=== PATIENT | male | born 1955 | race Caucasian/White ===

== ENCOUNTER 2017-08-17 19:39 | Inpatient (IN) | payer BC ==
[2017-08-17] MEDS ORDERED: ONDANSETRON 4 MG INJ IV (20:30)
[2017-08-17] MEDS: morphine 2 MG INJ IV (21:00)
[2017-08-17] MEDS: AMLODIPINE 5 MG TAB PO (21:00)
[2017-08-17] MEDS: ATORVASTATIN 10 MG TAB PO (21:00)
[2017-08-17] MEDS: TIOTROPIUM 18 MCG CAPSULE INHA DEV INH (22:07)
[2017-08-17] MEDS: ALPRAZOLAM 0.25 MG TAB PO (22:11)
[2017-08-18] MEDS: DOCUSATE SODIUM 100 MG CAP PO ×3 (00:56→20:46)
[2017-08-18] MEDS: morphine 2 MG INJ IV ×5 (00:57→20:47)
[2017-08-18 01:30] LABS: ADD MAN DIFF? NO
[2017-08-18 01:32] LABS: ABNORMAL IP MESSAGE 1; BASOPHIL # 0.1 10^3/ul (0.0-0.1); BASOPHILS % 0.3 % (0.0-2.0); EOSINOPHILS % 0.1 % (0.0-7.0); HEMOGLOBIN 13.6 g/dl (14.0-18.0); LYMPHOCYTES # 2.6 10^3/ul (0.8-2.9); LYMPHOCYTES % 11.6 % (15.0-51.0); MEAN CORPUSCULAR HEMOGLOBIN 30.7 pg (29.0-33.0); MEAN CORPUSCULAR HGB CONC 34.9 g/dl (32.0-37.0); MEAN PLATELET VOLUME 10.2 fl (7.4-10.4); MONOCYTE # 1.7 10^3/ul (0.3-0.9); MONOCYTES % 7.9 % (0.0-11.0); NEUTROPHIL # 17.5 10^3/ul (1.6-7.5); NEUTROPHILS % 79.4 % (39.0-77.0); PLATELET COUNT 212 10^3/UL (140-415); POSITIVE DIFF @See below; RED BLOOD COUNT 4.43 10^6/ul (4.70-6.10); RED CELL DISTRIBUTION WIDTH 15.5 % (11.5-14.5)
[2017-08-18 01:52] LABS: ALANINE AMINOTRANSFERASE 347 IU/L (13-69); ALBUMIN 2.7 g/dl (3.3-4.9); ALBUMIN/GLOBULIN RATIO 0.93; ALKALINE PHOSPHATASE 116 IU/L (42-121); ANION GAP 12 (8-16); ASPARTATE AMINO TRANSFERASE 135 IU/L (15-46); BILIRUBIN,INDIRECT 1.4 mg/dl (0-1.1); BILIRUBIN,TOTAL 1.5 mg/dl (0.2-1.3); BLOOD UREA NITROGEN 12 mg/dl (7-20); CALCIUM 7.3 mg/dl (8.4-10.2); CARBON DIOXIDE 27 mmol/L (21-31); CHLORIDE 98 mmol/L (97-110); CREATININE 0.89 mg/dl (0.61-1.24); GLUCOSE 184 mg/dl (70-220); MAGNESIUM 2.1 mg/dl (1.7-2.5); PHOSPHORUS 1.6 mg/dl (2.5-4.9); POTASSIUM 3.7 mmol/L (3.5-5.1); SODIUM 133 mmol/L (135-144); TOTAL PROTEIN 5.6 g/dl (6.1-8.1)
[2017-08-18 02:05] LABS: LACTIC ACID 2.8 mmol/L (0.5-2.0)
[2017-08-18] MEDS: ALBUTEROL HFA 8 GM INHALER INH ×2 (02:28→22:23)
[2017-08-18] MEDS: SOD CHLORIDE 0.9% 1,000 ML IV (02:28)
[2017-08-18] MEDS ORDERED: VANCOMYCIN IV PER PHARMACY XX (02:30)
[2017-08-18] MEDS: VANCOMYCIN 1.75 GM in SOD CHLORIDE 0.9% 500 ML IVPB (04:35)
[2017-08-18] MEDS ORDERED: INFLUENZA VIRUS VACCINE 0.5 ML SYG IM* (09:00)
[2017-08-18] MEDS ORDERED: AMLODIPINE 5 MG TAB PO (09:00)
[2017-08-18] MEDS: AMLODIPINE 5 MG TAB PO (09:00)
[2017-08-18] MEDS: PIPER-TAZO 3.375 GM IV (PMX) 100 ML IVPB ×4 (09:36→23:57)
[2017-08-18] MEDS: ALBUTEROL/IPRATROPIUM (NEB) 3 ML AMP HHN ×2 (10:28→16:28)
[2017-08-18] MEDS: ALPRAZOLAM 0.25 MG TAB PO (15:13)
[2017-08-18] MEDS: VANCOMYCIN 1.25 GM in SOD CHLORIDE 0.9% 250 ML IVPB (15:23)
[2017-08-18] MEDS: LACTATED RINGER'S 1,000 ML IV (15:23)
[2017-08-18 18:05] LABS: HEMATOCRIT 35.7 % (42.0-52.0); HEMOGLOBIN 12.2 g/dl (14.0-18.0)
[2017-08-18] MEDS: ATORVASTATIN 10 MG TAB PO (20:45)
[2017-08-18] MEDS: ACETAMINOPHEN 325 MG TAB PO (22:23)
[2017-08-18] MEDS: METOPROLOL 25 MG TAB PO (22:27)
[2017-08-18] MEDS: LEVALBUTEROL (NEB) 0.63 MG/3 ML AMP HHN (22:46)
[2017-08-18 22:56] LABS: ADD UMIC YES; UR ASCORBIC ACID NEGATIVE (NEGATIVE); UR BILIRUBIN (Dip) NEGATIVE (NEGATIVE); UR BLOOD (Dip) 2+ mg/dL (NEGATIVE); UR CLARITY CLEAR (CLEAR); UR COLOR AMBER (YELLOW); UR GLUCOSE (Dip) NEGATIVE (NEGATIVE); UR KETONES (Dip) NEGATIVE (NEGATIVE); UR LEUKOCYTE ESTERASE (Dip) NEGATIVE Leu/ul (NEGATIVE); UR NITRITE (Dip) NEGATIVE (NEGATIVE); UR RBC 1 /HPF (0-5); UR SPECIFIC GRAVITY (Dip) 1.028 (1.003-1.030); UR TOTAL PROTEIN (Dip) 2+ mg/dl (NEGATIVE); UR UROBILINOGEN (Dip) NEGATIVE (NEGATIVE); UR WBC 2 /HPF (0-5)
[2017-08-19 00:53] LABS: HEMATOCRIT 35.7 % (42.0-52.0); HEMOGLOBIN 12.3 g/dl (14.0-18.0)
[2017-08-19] MEDS: ALPRAZOLAM 0.25 MG TAB PO ×3 (01:01→20:22)
[2017-08-19] MEDS: morphine 2 MG INJ IV ×4 (01:02→17:19)
[2017-08-19] MEDS: VANCOMYCIN 1.25 GM in SOD CHLORIDE 0.9% 250 ML IVPB ×2 (03:24→15:31)
[2017-08-19] MEDS: LACTATED RINGER'S 1,000 ML IV ×3 (03:50→17:10)
[2017-08-19 05:37] LABS: ADD MAN DIFF? NO
[2017-08-19 05:47] LABS: ABNORMAL IP MESSAGE 1; BASOPHIL # 0.1 10^3/ul (0.0-0.1); BASOPHILS % 0.4 % (0.0-2.0); EOSINOPHILS # 0.3 10^3/ul (0.0-0.5); EOSINOPHILS % 1.7 % (0.0-7.0); HEMOGLOBIN 11.9 g/dl (14.0-18.0); LYMPHOCYTES % 13.5 % (15.0-51.0); MEAN CORPUSCULAR HEMOGLOBIN 30.7 pg (29.0-33.0); MEAN CORPUSCULAR VOLUME 90.2 fl (82.0-101.0); MEAN PLATELET VOLUME 10.6 fl (7.4-10.4); MONOCYTE # 1.5 10^3/ul (0.3-0.9); MONOCYTES % 10.6 % (0.0-11.0); NEUTROPHIL # 10.6 10^3/ul (1.6-7.5); NEUTROPHILS % 72.8 % (39.0-77.0); PLATELET COUNT 163 10^3/UL (140-415); POSITIVE DIFF @See below; RED BLOOD COUNT 3.88 10^6/ul (4.70-6.10); RED CELL DISTRIBUTION WIDTH 15.7 % (11.5-14.5)
[2017-08-19 05:47] LABS: WHITE BLOOD COUNT 14.6 10^3/ul (4.8-10.8)
[2017-08-19 06:34] LABS: ANION GAP 8 (8-16); BLOOD UREA NITROGEN 6 mg/dl (7-20); CALCIUM 7.5 mg/dl (8.4-10.2); CARBON DIOXIDE 31 mmol/L (21-31); CHLORIDE 104 mmol/L (97-110); CREATININE 0.78 mg/dl (0.61-1.24); GLUCOSE 134 mg/dl (70-220); POTASSIUM 3.3 mmol/L (3.5-5.1); SODIUM 140 mmol/L (135-144)
[2017-08-19] MEDS: PIPER-TAZO 3.375 GM IV (PMX) 100 ML IVPB ×3 (06:38→20:19)
[2017-08-19] MEDS: AMLODIPINE 5 MG TAB PO (09:15)
[2017-08-19] MEDS: METOPROLOL 25 MG TAB PO ×2 (09:15→20:20)
[2017-08-19] MEDS: DOCUSATE SODIUM 100 MG CAP PO ×2 (09:15→20:19)
[2017-08-19 12:41] LABS: HEMATOCRIT 36.1 % (42.0-52.0)
[2017-08-19 14:30] LABS: IRON 27 ug/dl (35-150)
[2017-08-19 14:38] LABS: VANCOMYCIN,TROUGH 6.6 ug/ml (10.0-20.0)
[2017-08-19 14:40] LABS: % IRON SATURATION 13 % SAT (22-52); TOTAL IRON BINDING CAPACITY 216 ug/dl (241-421)
[2017-08-19] MEDS: HYDROCODONE/APAP (5/325) TAB PO (15:06)
[2017-08-19 15:25] LABS: LIPASE 336 U/L (23-300)
[2017-08-19 15:28] LABS: HEPATITIS B SURFACE ANTIGEN NEGATIVE (NEGATIVE)
[2017-08-19 15:46] LABS: HEPATITIS B CORE ANTIBODY NEGATIVE (NEGATIVE); HEPATITIS C VIRAL ANTIBODY NEGATIVE (NEGATIVE)
[2017-08-19 15:47] LABS: HEPATITIS B SURFACE ANTIBODY NEGATIVE (NEGATIVE)
[2017-08-19 15:55] LABS: INR 1.04; PROTIME 13.7 Sec (11.9-14.9); PT RATIO 1.1
[2017-08-19 16:39] LABS: ALPHA FETOPROTEIN 1.57 IU/L (0.00-7.21)
[2017-08-19] MEDS: TIOTROPIUM 18 MCG CAPSULE INHA DEV INH (17:19)
[2017-08-19 18:38] LABS: HEMATOCRIT 34.1 % (42.0-52.0); HEMOGLOBIN 11.5 g/dl (14.0-18.0)
[2017-08-19] MEDS: ATORVASTATIN 10 MG TAB PO (20:19)
[2017-08-19] MEDS: ALBUTEROL 0.083% (NEB) 2.5 MG/3 ML AMP HHN (22:16)
[2017-08-19] MEDS: VANCOMYCIN 1 GM 250 ML IVPB (23:25)
[2017-08-20] MEDS: PIPER-TAZO 3.375 GM IV (PMX) 100 ML IVPB ×4 (01:35→18:48)
[2017-08-20] MEDS: ALBUTEROL 0.083% (NEB) 2.5 MG/3 ML AMP HHN ×3 (05:55→13:46)
[2017-08-20 06:01] LABS: ADD MAN DIFF? NO
[2017-08-20 06:10] LABS: ABNORMAL IP MESSAGE 1; BASOPHIL # 0.1 10^3/ul (0.0-0.1); BASOPHILS % 0.3 % (0.0-2.0); EOSINOPHILS # 0.4 10^3/ul (0.0-0.5); EOSINOPHILS % 2.2 % (0.0-7.0); HEMATOCRIT 37.5 % (42.0-52.0); HEMOGLOBIN 12.7 g/dl (14.0-18.0); LYMPHOCYTES # 2.5 10^3/ul (0.8-2.9); LYMPHOCYTES % 15.6 % (15.0-51.0); MEAN CORPUSCULAR HEMOGLOBIN 30.2 pg (29.0-33.0); MEAN CORPUSCULAR HGB CONC 33.9 g/dl (32.0-37.0); MEAN CORPUSCULAR VOLUME 89.3 fl (82.0-101.0); MEAN PLATELET VOLUME 10.4 fl (7.4-10.4); MONOCYTE # 1.6 10^3/ul (0.3-0.9); NEUTROPHIL # 11.4 10^3/ul (1.6-7.5); NEUTROPHILS % 70.5 % (39.0-77.0); PLATELET COUNT 223 10^3/UL (140-415); POSITIVE DIFF @See below; RED CELL DISTRIBUTION WIDTH 15.2 % (11.5-14.5)
[2017-08-20 06:10] LABS: WHITE BLOOD COUNT 16.1 10^3/ul (4.8-10.8)
[2017-08-20] MEDS: LACTATED RINGER'S 1,000 ML IV ×2 (06:30→09:36)
[2017-08-20] MEDS: morphine 2 MG INJ IV ×3 (06:35→22:03)
[2017-08-20] MEDS: PANTOPRAZOLE 40 MG INJ IV (06:35)
[2017-08-20 06:42] LABS: ANION GAP 13 (8-16); BLOOD UREA NITROGEN 6 mg/dl (7-20); CALCIUM 8.3 mg/dl (8.4-10.2); CARBON DIOXIDE 27 mmol/L (21-31); CHLORIDE 102 mmol/L (97-110); CREATININE 0.81 mg/dl (0.61-1.24); GLUCOSE 137 mg/dl (70-220); POTASSIUM 3.3 mmol/L (3.5-5.1); SODIUM 139 mmol/L (135-144)
[2017-08-20] MEDS: VANCOMYCIN 1 GM 250 ML IVPB (08:49)
[2017-08-20] MEDS: DOCUSATE SODIUM 100 MG CAP PO ×2 (08:49→20:28)
[2017-08-20] MEDS: AMLODIPINE 5 MG TAB PO (08:50)
[2017-08-20] MEDS: METOPROLOL 25 MG TAB PO ×2 (08:51→20:28)
[2017-08-20] MEDS: ALPRAZOLAM 0.25 MG TAB PO ×2 (08:57→22:02)
[2017-08-20 13:24] LABS: OCCULT BLOOD STOOL NEGATIVE (NEGATIVE)
[2017-08-20 13:31] LABS: ALANINE AMINOTRANSFERASE 176 IU/L (13-69); ALBUMIN 3.2 g/dl (3.3-4.9); ALKALINE PHOSPHATASE 140 IU/L (42-121); ASPARTATE AMINO TRANSFERASE 67 IU/L (15-46); BILIRUBIN,INDIRECT 0.7 mg/dl (0-1.1); BILIRUBIN,TOTAL 0.7 mg/dl (0.2-1.3); TOTAL PROTEIN 6.6 g/dl (6.1-8.1)
[2017-08-20] MEDS ORDERED: PROPOFOL 40 ML (17:35)
[2017-08-20] MEDS ORDERED: LIDOCAINE 2% (SDV) 5 ML INJ (17:35)
[2017-08-20] MEDS: FERROUS GLUCONATE (EC) 325 MG TAB PO (20:28)
[2017-08-20] MEDS: ATORVASTATIN 10 MG TAB PO (20:28)
[2017-08-20] MEDS: LEVALBUTEROL (NEB) 0.63 MG/3 ML AMP HHN (20:32)
[2017-08-21] MEDS: PIPER-TAZO 3.375 GM IV (PMX) 100 ML IVPB ×5 (00:06→23:54)
[2017-08-21] MEDS: ALBUTEROL HFA 8 GM INHALER INH (00:07)
[2017-08-21] MEDS: LEVALBUTEROL (NEB) 0.63 MG/3 ML AMP HHN ×5 (00:50→21:02)
[2017-08-21] MEDS: PANTOPRAZOLE 40 MG INJ IV (06:17)
[2017-08-21] MEDS: LACTATED RINGER'S 1,000 ML IV ×3 (06:22→22:30)
[2017-08-21 07:05] LABS: ADD MAN DIFF? NO
[2017-08-21 07:10] LABS: WHITE BLOOD COUNT 11.4 10^3/ul (4.8-10.8)
[2017-08-21 07:10] LABS: BASOPHIL # 0.1 10^3/ul (0.0-0.1); BASOPHILS % 0.4 % (0.0-2.0); EOSINOPHILS # 0.2 10^3/ul (0.0-0.5); HEMATOCRIT 35.2 % (42.0-52.0); HEMOGLOBIN 11.9 g/dl (14.0-18.0); LYMPHOCYTES # 1.8 10^3/ul (0.8-2.9); LYMPHOCYTES % 15.5 % (15.0-51.0); MEAN CORPUSCULAR HEMOGLOBIN 30.4 pg (29.0-33.0); MEAN CORPUSCULAR HGB CONC 33.8 g/dl (32.0-37.0); MEAN PLATELET VOLUME 10.3 fl (7.4-10.4); MONOCYTE # 1.4 10^3/ul (0.3-0.9); MONOCYTES % 12.5 % (0.0-11.0); NEUTROPHIL # 7.8 10^3/ul (1.6-7.5); NEUTROPHILS % 68.4 % (39.0-77.0); PLATELET COUNT 201 10^3/UL (140-415); RED BLOOD COUNT 3.91 10^6/ul (4.70-6.10); RED CELL DISTRIBUTION WIDTH 15.2 % (11.5-14.5)
[2017-08-21 07:29] LABS: ALANINE AMINOTRANSFERASE 130 IU/L (13-69); ALBUMIN 2.7 g/dl (3.3-4.9); ALKALINE PHOSPHATASE 102 IU/L (42-121); ASPARTATE AMINO TRANSFERASE 46 IU/L (15-46); BILIRUBIN,INDIRECT 0.2 mg/dl (0-1.1); BILIRUBIN,TOTAL 0.2 mg/dl (0.2-1.3); TOTAL PROTEIN 5.3 g/dl (6.1-8.1)
[2017-08-21 07:35] LABS: ANION GAP 14 (8-16); BLOOD UREA NITROGEN 8 mg/dl (7-20); CALCIUM 8.3 mg/dl (8.4-10.2); CARBON DIOXIDE 31 mmol/L (21-31); CHLORIDE 101 mmol/L (97-110); CREATININE 0.87 mg/dl (0.61-1.24); GLUCOSE 138 mg/dl (70-220); SODIUM 143 mmol/L (135-144)
[2017-08-21 07:38] LABS: POTASSIUM 2.7 mmol/L (3.5-5.1)
[2017-08-21] MEDS: METOPROLOL 25 MG TAB PO ×2 (07:53→20:58)
[2017-08-21] MEDS: AMLODIPINE 5 MG TAB PO (07:53)
[2017-08-21 09:03] LABS: ADD MAN DIFF? NO
[2017-08-21 09:06] LABS: WHITE BLOOD COUNT 12.3 10^3/ul (4.8-10.8)
[2017-08-21 09:06] LABS: ABNORMAL IP MESSAGE 1; BASOPHILS % 0.3 % (0.0-2.0); EOSINOPHILS # 0.2 10^3/ul (0.0-0.5); EOSINOPHILS % 1.9 % (0.0-7.0); HEMATOCRIT 34.4 % (42.0-52.0); HEMOGLOBIN 11.5 g/dl (14.0-18.0); LYMPHOCYTES % 16.5 % (15.0-51.0); MEAN CORPUSCULAR HEMOGLOBIN 30.3 pg (29.0-33.0); MEAN CORPUSCULAR HGB CONC 33.4 g/dl (32.0-37.0); MEAN CORPUSCULAR VOLUME 90.5 fl (82.0-101.0); MEAN PLATELET VOLUME 10.4 fl (7.4-10.4); MONOCYTE # 1.6 10^3/ul (0.3-0.9); MONOCYTES % 12.8 % (0.0-11.0); NEUTROPHIL # 8.3 10^3/ul (1.6-7.5); NEUTROPHILS % 67.4 % (39.0-77.0); PLATELET COUNT 194 10^3/UL (140-415); POSITIVE DIFF @See below; RED CELL DISTRIBUTION WIDTH 15.3 % (11.5-14.5)
[2017-08-21] MEDS: DOCUSATE SODIUM 100 MG CAP PO ×2 (09:18→20:57)
[2017-08-21] MEDS: FERROUS GLUCONATE (EC) 325 MG TAB PO ×2 (09:18→20:57)
[2017-08-21 09:19] LABS: ALANINE AMINOTRANSFERASE 131 IU/L (13-69); ALBUMIN 3.1 g/dl (3.3-4.9); ALBUMIN/GLOBULIN RATIO 1.03; ALKALINE PHOSPHATASE 116 IU/L (42-121); AMYLASE 107 U/L (11-123); ANION GAP 13 (8-16); ASPARTATE AMINO TRANSFERASE 46 IU/L (15-46); BILIRUBIN,INDIRECT 0.3 mg/dl (0-1.1); BILIRUBIN,TOTAL 0.3 mg/dl (0.2-1.3); BLOOD UREA NITROGEN 8 mg/dl (7-20); CALCIUM 8.1 mg/dl (8.4-10.2); CARBON DIOXIDE 30 mmol/L (21-31); CHLORIDE 101 mmol/L (97-110); CREATININE 0.88 mg/dl (0.61-1.24); GLUCOSE 150 mg/dl (70-220); LIPASE 794 U/L (23-300); SODIUM 141 mmol/L (135-144); TOTAL PROTEIN 6.1 g/dl (6.1-8.1)
[2017-08-21] MEDS: morphine 2 MG INJ IV (09:19)
[2017-08-21 09:22] LABS: POTASSIUM 2.9 mmol/L (3.5-5.1)
[2017-08-21 09:26] LABS: INR 0.95; PROTIME 12.8 Sec (11.9-14.9)
[2017-08-21 09:44] LABS: MAGNESIUM 2.1 mg/dl (1.7-2.5)
[2017-08-21 09:44] LABS: PHOSPHORUS 3.6 mg/dl (2.5-4.9)
[2017-08-21] MEDS ORDERED: INFLUENZA VIRUS VACCINE 0.5 ML SYG IM* (10:00)
[2017-08-21] MEDS: POTASSIUM CHLORIDE 100 ML IVPB ×4 (10:32→19:31)
[2017-08-21 11:37] LABS: MITOCHONDRIAL TB NEGATIVE (NEGATIVE); SMOOTH MUSCLE AB SCREEN NEGATIVE (NEGATIVE)
[2017-08-21 14:36] LABS: ANA SCREEN NEGATIVE (NEGATIVE)
[2017-08-21] MEDS: ALPRAZOLAM 0.25 MG TAB PO ×2 (15:32→23:54)
[2017-08-21 15:55] LABS: POTASSIUM 3.3 mmol/L (3.5-5.1)
[2017-08-21] MEDS: ATORVASTATIN 10 MG TAB PO (20:57)
[2017-08-21 23:17] LABS: POTASSIUM 3.6 mmol/L (3.5-5.1)
[2017-08-21] MEDS: POTASSIUM CHLORIDE (SR) 20 MEQ TAB PO (23:54)
[2017-08-22] MEDS: HYDROCODONE/APAP (5/325) TAB PO ×2 (01:43→14:15)
[2017-08-22] MEDS: PANTOPRAZOLE 40 MG INJ IV (05:15)
[2017-08-22] MEDS: PIPER-TAZO 3.375 GM IV (PMX) 100 ML IVPB (05:15)
[2017-08-22] MEDS: LACTATED RINGER'S 1,000 ML IV (05:15)
[2017-08-22] MEDS: LEVALBUTEROL (NEB) 0.63 MG/3 ML AMP HHN (05:38)
[2017-08-22 05:57] LABS: ADD MAN DIFF? NO
[2017-08-22 06:05] LABS: ABNORMAL IP MESSAGE 1; BASOPHIL # 0.1 10^3/ul (0.0-0.1); BASOPHILS % 0.5 % (0.0-2.0); EOSINOPHILS # 0.3 10^3/ul (0.0-0.5); EOSINOPHILS % 2.5 % (0.0-7.0); HEMATOCRIT 33.8 % (42.0-52.0); HEMOGLOBIN 11.4 g/dl (14.0-18.0); LYMPHOCYTES # 1.9 10^3/ul (0.8-2.9); LYMPHOCYTES % 16.9 % (15.0-51.0); MEAN CORPUSCULAR HEMOGLOBIN 30.6 pg (29.0-33.0); MEAN CORPUSCULAR HGB CONC 33.7 g/dl (32.0-37.0); MEAN CORPUSCULAR VOLUME 90.9 fl (82.0-101.0); MEAN PLATELET VOLUME 9.9 fl (7.4-10.4); MONOCYTE # 1.5 10^3/ul (0.3-0.9); MONOCYTES % 13.5 % (0.0-11.0); NEUTROPHIL # 7.3 10^3/ul (1.6-7.5); NEUTROPHILS % 64.8 % (39.0-77.0); PLATELET COUNT 217 10^3/UL (140-415); POSITIVE DIFF @See below; RED BLOOD COUNT 3.72 10^6/ul (4.70-6.10); RED CELL DISTRIBUTION WIDTH 15.2 % (11.5-14.5)
[2017-08-22 06:05] LABS: WHITE BLOOD COUNT 11.3 10^3/ul (4.8-10.8)
[2017-08-22 06:07] LABS: INR 0.97
[2017-08-22 06:08] LABS: PARTIAL THROMBOPLASTIN TIME 31.2 Sec (25.0-35.0)
[2017-08-22 06:31] LABS: ALANINE AMINOTRANSFERASE 104 IU/L (13-69); ALBUMIN 3.1 g/dl (3.3-4.9); ALBUMIN/GLOBULIN RATIO 0.96; ALKALINE PHOSPHATASE 100 IU/L (42-121); AMYLASE 119 U/L (11-123); ANION GAP 13 (8-16); ASPARTATE AMINO TRANSFERASE 40 IU/L (15-46); BILIRUBIN,INDIRECT 0.1 mg/dl (0-1.1); BILIRUBIN,TOTAL 0.1 mg/dl (0.2-1.3); BLOOD UREA NITROGEN 9 mg/dl (7-20); CALCIUM 8.3 mg/dl (8.4-10.2); CARBON DIOXIDE 29 mmol/L (21-31); CHLORIDE 105 mmol/L (97-110); GLUCOSE 173 mg/dl (70-220); LIPASE 1411 U/L (23-300); PHOSPHORUS 3.4 mg/dl (2.5-4.9); POTASSIUM 3.5 mmol/L (3.5-5.1); SODIUM 143 mmol/L (135-144); TOTAL PROTEIN 6.3 g/dl (6.1-8.1)
[2017-08-22] MEDS: DOCUSATE SODIUM 100 MG CAP PO ×2 (09:23→20:22)
[2017-08-22] MEDS: FERROUS GLUCONATE (EC) 325 MG TAB PO ×2 (09:23→20:22)
[2017-08-22] MEDS: METOPROLOL 25 MG TAB PO ×2 (09:23→20:22)
[2017-08-22] MEDS: AMLODIPINE 5 MG TAB PO (09:24)
[2017-08-22] MEDS: LEVOFLOXACIN 500MG/D5W (PMX) 100 ML IVPB (09:39)
[2017-08-22] MEDS: ALPRAZOLAM 0.25 MG TAB PO ×2 (12:33→21:40)
[2017-08-22] MEDS: ATORVASTATIN 10 MG TAB PO (20:23)
[2017-08-22] MEDS: ALBUTEROL 0.083% (NEB) 2.5 MG/3 ML AMP HHN (21:21)
[2017-08-23] MEDS: PANTOPRAZOLE 40 MG INJ IV (05:49)
[2017-08-23 06:50] LABS: ADD MAN DIFF? NO
[2017-08-23 06:55] LABS: WHITE BLOOD COUNT 12.7 10^3/ul (4.8-10.8)
[2017-08-23 06:55] LABS: ABNORMAL IP MESSAGE 1; BASOPHIL # 0.1 10^3/ul (0.0-0.1); BASOPHILS % 0.6 % (0.0-2.0); EOSINOPHILS # 0.3 10^3/ul (0.0-0.5); EOSINOPHILS % 2.5 % (0.0-7.0); HEMATOCRIT 33.8 % (42.0-52.0); HEMOGLOBIN 11.4 g/dl (14.0-18.0); LYMPHOCYTES # 2.3 10^3/ul (0.8-2.9); LYMPHOCYTES % 17.8 % (15.0-51.0); MEAN CORPUSCULAR HEMOGLOBIN 30.3 pg (29.0-33.0); MEAN CORPUSCULAR HGB CONC 33.7 g/dl (32.0-37.0); MEAN CORPUSCULAR VOLUME 89.9 fl (82.0-101.0); MONOCYTE # 1.5 10^3/ul (0.3-0.9); NEUTROPHIL # 8.3 10^3/ul (1.6-7.5); NEUTROPHILS % 64.9 % (39.0-77.0); PLATELET COUNT 277 10^3/UL (140-415); POSITIVE DIFF @See below; RED BLOOD COUNT 3.76 10^6/ul (4.70-6.10)
[2017-08-23 07:14] LABS: ANION GAP 12 (8-16); BLOOD UREA NITROGEN 11 mg/dl (7-20); CALCIUM 8.5 mg/dl (8.4-10.2); CARBON DIOXIDE 29 mmol/L (21-31); CHLORIDE 104 mmol/L (97-110); CREATININE 0.79 mg/dl (0.61-1.24); GLUCOSE 131 mg/dl (70-220); POTASSIUM 3.6 mmol/L (3.5-5.1); SODIUM 141 mmol/L (135-144)
[2017-08-23] MEDS: DOCUSATE SODIUM 100 MG CAP PO ×2 (08:28→21:00)
[2017-08-23] MEDS: FERROUS GLUCONATE (EC) 325 MG TAB PO ×2 (08:29→21:00)
[2017-08-23] MEDS: ALPRAZOLAM 0.25 MG TAB PO ×2 (08:29→22:11)
[2017-08-23] MEDS: METOPROLOL 25 MG TAB PO ×2 (08:29→22:12)
[2017-08-23] MEDS: AMLODIPINE 5 MG TAB PO (08:29)
[2017-08-23] MEDS: ALBUTEROL 0.083% (NEB) 2.5 MG/3 ML AMP HHN ×2 (08:54→20:56)
[2017-08-23] MEDS: LEVOFLOXACIN 500MG/D5W (PMX) 100 ML IVPB (09:39)
[2017-08-23] MEDS: HYDROCODONE/APAP (5/325) TAB PO (11:09)
[2017-08-23] MEDS: ATORVASTATIN 10 MG TAB PO (21:00)
[2017-08-24] MEDS: ALBUTEROL 0.083% (NEB) 2.5 MG/3 ML AMP HHN ×2 (04:06→16:40)
[2017-08-24] MEDS: PANTOPRAZOLE 40 MG INJ IV (05:51)
[2017-08-24 06:14] LABS: ADD MAN DIFF? NO
[2017-08-24 06:20] LABS: WHITE BLOOD COUNT 11.1 10^3/ul (4.8-10.8)
[2017-08-24 06:20] LABS: BASOPHIL # 0.1 10^3/ul (0.0-0.1); BASOPHILS % 0.6 % (0.0-2.0); EOSINOPHILS # 0.2 10^3/ul (0.0-0.5); EOSINOPHILS % 1.8 % (0.0-7.0); HEMATOCRIT 34.3 % (42.0-52.0); HEMOGLOBIN 11.6 g/dl (14.0-18.0); LYMPHOCYTES # 2.4 10^3/ul (0.8-2.9); LYMPHOCYTES % 21.6 % (15.0-51.0); MEAN CORPUSCULAR HEMOGLOBIN 30.5 pg (29.0-33.0); MEAN CORPUSCULAR HGB CONC 33.8 g/dl (32.0-37.0); MEAN CORPUSCULAR VOLUME 90.3 fl (82.0-101.0); MEAN PLATELET VOLUME 9.4 fl (7.4-10.4); MONOCYTE # 1.3 10^3/ul (0.3-0.9); MONOCYTES % 11.9 % (0.0-11.0); NEUTROPHIL # 6.9 10^3/ul (1.6-7.5); NEUTROPHILS % 62.3 % (39.0-77.0); PLATELET COUNT 331 10^3/UL (140-415)
[2017-08-24 06:43] LABS: LIPASE 852 U/L (23-300)
[2017-08-24 07:00] LABS: ALANINE AMINOTRANSFERASE 78 IU/L (13-69); ALBUMIN 3.3 g/dl (3.3-4.9); ALKALINE PHOSPHATASE 89 IU/L (42-121); AMYLASE 108 U/L (11-123); ANION GAP 15 (8-16); ASPARTATE AMINO TRANSFERASE 31 IU/L (15-46); BILIRUBIN,INDIRECT 0.2 mg/dl (0-1.1); BILIRUBIN,TOTAL 0.2 mg/dl (0.2-1.3); BLOOD UREA NITROGEN 13 mg/dl (7-20); CALCIUM 8.9 mg/dl (8.4-10.2); CARBON DIOXIDE 29 mmol/L (21-31); CHLORIDE 101 mmol/L (97-110); CREATININE 0.91 mg/dl (0.61-1.24); GLUCOSE 138 mg/dl (70-220); POTASSIUM 4.2 mmol/L (3.5-5.1); SODIUM 141 mmol/L (135-144); TOTAL PROTEIN 6.3 g/dl (6.1-8.1)
[2017-08-24] MEDS: FERROUS GLUCONATE (EC) 325 MG TAB PO ×2 (08:33→21:03)
[2017-08-24] MEDS: DOCUSATE SODIUM 100 MG CAP PO ×2 (08:33→21:03)
[2017-08-24] MEDS: METOPROLOL 25 MG TAB PO ×2 (08:34→21:00)
[2017-08-24] MEDS: LEVOFLOXACIN 500MG/D5W (PMX) 100 ML IVPB (08:35)
[2017-08-24] MEDS: ALPRAZOLAM 0.25 MG TAB PO ×2 (08:35→21:06)
[2017-08-24] MEDS: AMLODIPINE 5 MG TAB PO (08:35)
[2017-08-24] MEDS: ATORVASTATIN 10 MG TAB PO (21:03)
[2017-08-25 06:23] LABS: ADD MAN DIFF? NO
[2017-08-25 06:30] LABS: BASOPHIL # 0.1 10^3/ul (0.0-0.1); BASOPHILS % 0.5 % (0.0-2.0); EOSINOPHILS # 0.2 10^3/ul (0.0-0.5); EOSINOPHILS % 2.1 % (0.0-7.0); HEMATOCRIT 34.2 % (42.0-52.0); HEMOGLOBIN 11.4 g/dl (14.0-18.0); LYMPHOCYTES # 2.3 10^3/ul (0.8-2.9); LYMPHOCYTES % 22.7 % (15.0-51.0); MEAN CORPUSCULAR HEMOGLOBIN 30.2 pg (29.0-33.0); MEAN CORPUSCULAR HGB CONC 33.3 g/dl (32.0-37.0); MEAN CORPUSCULAR VOLUME 90.7 fl (82.0-101.0); MEAN PLATELET VOLUME 9.6 fl (7.4-10.4); MONOCYTE # 1.2 10^3/ul (0.3-0.9); MONOCYTES % 11.6 % (0.0-11.0); NEUTROPHIL # 6.1 10^3/ul (1.6-7.5); NEUTROPHILS % 61.4 % (39.0-77.0); PLATELET COUNT 377 10^3/UL (140-415); RED BLOOD COUNT 3.77 10^6/ul (4.70-6.10); RED CELL DISTRIBUTION WIDTH 14.9 % (11.5-14.5)
[2017-08-25 06:30] LABS: WHITE BLOOD COUNT 9.9 10^3/ul (4.8-10.8)
[2017-08-25] MEDS: PANTOPRAZOLE 40 MG INJ IV (06:52)
[2017-08-25] MEDS: HYDROCODONE/APAP (5/325) TAB PO (06:55)
[2017-08-25 06:58] LABS: LIPASE 1075 U/L (23-300)
[2017-08-25 06:58] LABS: ANION GAP 14 (8-16); BLOOD UREA NITROGEN 9 mg/dl (7-20); CALCIUM 8.6 mg/dl (8.4-10.2); CARBON DIOXIDE 30 mmol/L (21-31); CHLORIDE 102 mmol/L (97-110); CREATININE 0.74 mg/dl (0.61-1.24); GLUCOSE 137 mg/dl (70-220); POTASSIUM 3.7 mmol/L (3.5-5.1); SODIUM 142 mmol/L (135-144)
[2017-08-25 07:03] LABS: MAGNESIUM 2.1 mg/dl (1.7-2.5)
[2017-08-25 07:03] LABS: PHOSPHORUS 3.5 mg/dl (2.5-4.9)
[2017-08-25] MEDS: LEVOFLOXACIN 500MG/D5W (PMX) 100 ML IVPB (08:46)
[2017-08-25] MEDS: AMLODIPINE 5 MG TAB PO (08:46)
[2017-08-25] MEDS: DOCUSATE SODIUM 100 MG CAP PO ×2 (08:46→19:50)
[2017-08-25] MEDS: METOPROLOL 25 MG TAB PO ×2 (08:46→19:51)
[2017-08-25] MEDS: FERROUS GLUCONATE (EC) 325 MG TAB PO ×2 (08:46→19:50)
[2017-08-25] MEDS: ALPRAZOLAM 0.25 MG TAB PO ×2 (10:15→19:51)
[2017-08-25 10:45] LABS: OCCULT BLOOD STOOL NEGATIVE (NEGATIVE)
[2017-08-25] MEDS: ALBUTEROL HFA 8 GM INHALER INH (10:57)
[2017-08-25 11:55] LABS: CHOLESTEROL 122 mg/dl (100-200)
[2017-08-25 11:55] LABS: HDL CHOLESTEROL 30 mg/dl (30-78); LDL CHOLESTEROL,CALCULATED 56 mg/dl; TRIGLYCERIDES 182 mg/dl (0-149)
[2017-08-25] MEDS: ATORVASTATIN 10 MG TAB PO (19:50)
[2017-08-26] MEDS: HYDROCODONE/APAP (5/325) TAB PO ×2 (00:07→20:12)
[2017-08-26] MEDS: PANTOPRAZOLE 40 MG INJ IV (05:45)
[2017-08-26] MEDS: ALPRAZOLAM 0.25 MG TAB PO ×2 (06:14→14:22)
[2017-08-26 06:24] LABS: ADD MAN DIFF? NO
[2017-08-26 06:25] LABS: BASOPHIL # 0.1 10^3/ul (0.0-0.1); BASOPHILS % 0.6 % (0.0-2.0); EOSINOPHILS # 0.3 10^3/ul (0.0-0.5); EOSINOPHILS % 2.8 % (0.0-7.0); HEMATOCRIT 35.1 % (42.0-52.0); HEMOGLOBIN 11.7 g/dl (14.0-18.0); LYMPHOCYTES # 2.6 10^3/ul (0.8-2.9); LYMPHOCYTES % 28.7 % (15.0-51.0); MEAN CORPUSCULAR HEMOGLOBIN 30.1 pg (29.0-33.0); MEAN CORPUSCULAR HGB CONC 33.3 g/dl (32.0-37.0); MEAN CORPUSCULAR VOLUME 90.2 fl (82.0-101.0); MEAN PLATELET VOLUME 9.4 fl (7.4-10.4); MONOCYTE # 0.9 10^3/ul (0.3-0.9); MONOCYTES % 10.5 % (0.0-11.0); NEUTROPHIL # 5.1 10^3/ul (1.6-7.5); NEUTROPHILS % 56.1 % (39.0-77.0); PLATELET COUNT 399 10^3/UL (140-415); RED BLOOD COUNT 3.89 10^6/ul (4.70-6.10); RED CELL DISTRIBUTION WIDTH 14.6 % (11.5-14.5)
[2017-08-26 06:47] LABS: LIPASE 592 U/L (23-300)
[2017-08-26 06:54] LABS: ANION GAP 16 (8-16); BLOOD UREA NITROGEN 6 mg/dl (7-20); CALCIUM 8.8 mg/dl (8.4-10.2); CARBON DIOXIDE 30 mmol/L (21-31); CHLORIDE 104 mmol/L (97-110); CREATININE 0.83 mg/dl (0.61-1.24); GLUCOSE 111 mg/dl (70-220); POTASSIUM 3.9 mmol/L (3.5-5.1); SODIUM 146 mmol/L (135-144)
[2017-08-26] MEDS: DOCUSATE SODIUM 100 MG CAP PO ×2 (08:55→20:12)
[2017-08-26] MEDS: FERROUS GLUCONATE (EC) 325 MG TAB PO ×2 (08:55→20:12)
[2017-08-26] MEDS: LEVOFLOXACIN 500MG/D5W (PMX) 100 ML IVPB (08:55)
[2017-08-26] MEDS: AMLODIPINE 5 MG TAB PO (08:57)
[2017-08-26] MEDS: METOPROLOL 25 MG TAB PO ×2 (08:58→20:12)
[2017-08-26] MEDS: ATORVASTATIN 10 MG TAB PO (20:12)
[2017-08-27] MEDS: ALPRAZOLAM 0.25 MG TAB PO ×3 (03:31→20:19)
[2017-08-27] MEDS: PANTOPRAZOLE 40 MG INJ IV (05:56)
[2017-08-27 06:21] LABS: ADD MAN DIFF? NO
[2017-08-27 06:45] LABS: WHITE BLOOD COUNT 9.5 10^3/ul (4.8-10.8)
[2017-08-27 06:45] LABS: BASOPHIL # 0.1 10^3/ul (0.0-0.1); BASOPHILS % 0.6 % (0.0-2.0); EOSINOPHILS # 0.2 10^3/ul (0.0-0.5); EOSINOPHILS % 2.4 % (0.0-7.0); HEMATOCRIT 34.2 % (42.0-52.0); HEMOGLOBIN 11.4 g/dl (14.0-18.0); LYMPHOCYTES # 2.8 10^3/ul (0.8-2.9); LYMPHOCYTES % 29.5 % (15.0-51.0); MEAN CORPUSCULAR HEMOGLOBIN 30.2 pg (29.0-33.0); MEAN CORPUSCULAR HGB CONC 33.3 g/dl (32.0-37.0); MEAN CORPUSCULAR VOLUME 90.7 fl (82.0-101.0); MEAN PLATELET VOLUME 9.4 fl (7.4-10.4); MONOCYTES % 10.5 % (0.0-11.0); NEUTROPHIL # 5.3 10^3/ul (1.6-7.5); NEUTROPHILS % 55.4 % (39.0-77.0); PLATELET COUNT 428 10^3/UL (140-415); RED BLOOD COUNT 3.77 10^6/ul (4.70-6.10); RED CELL DISTRIBUTION WIDTH 14.5 % (11.5-14.5)
[2017-08-27 07:04] LABS: LIPASE 964 U/L (23-300)
[2017-08-27 07:28] LABS: ANION GAP 15 (8-16); BLOOD UREA NITROGEN 12 mg/dl (7-20); CALCIUM 8.7 mg/dl (8.4-10.2); CARBON DIOXIDE 30 mmol/L (21-31); CHLORIDE 102 mmol/L (97-110); GLUCOSE 176 mg/dl (70-220); POTASSIUM 3.7 mmol/L (3.5-5.1); SODIUM 143 mmol/L (135-144)
[2017-08-27] MEDS: HYDROCODONE/APAP (5/325) TAB PO ×3 (08:10→23:26)
[2017-08-27] MEDS: METOPROLOL 25 MG TAB PO ×2 (08:10→20:15)
[2017-08-27] MEDS: DOCUSATE SODIUM 100 MG CAP PO ×2 (08:10→20:14)
[2017-08-27] MEDS: LEVOFLOXACIN 500MG/D5W (PMX) 100 ML IVPB (08:11)
[2017-08-27] MEDS: FERROUS GLUCONATE (EC) 325 MG TAB PO ×2 (08:11→20:15)
[2017-08-27] MEDS: AMLODIPINE 5 MG TAB PO (08:11)
[2017-08-27] MEDS: SOD CHLORIDE 0.9% 1,000 ML IV (11:08)
[2017-08-27] MEDS: PANTOPRAZOLE (EC) 40 MG TAB PO (17:07)
[2017-08-27] MEDS: ATORVASTATIN 10 MG TAB PO (20:15)
[2017-08-27] MEDS: ALBUTEROL 0.083% (NEB) 2.5 MG/3 ML AMP HHN (20:51)
[2017-08-28 05:43] LABS: ADD MAN DIFF? NO
[2017-08-28] MEDS: PANTOPRAZOLE (EC) 40 MG TAB PO ×2 (05:43→17:11)
[2017-08-28] MEDS: ALPRAZOLAM 0.25 MG TAB PO ×3 (05:46→22:07)
[2017-08-28 05:47] LABS: BASOPHIL # 0.1 10^3/ul (0.0-0.1); EOSINOPHILS # 0.3 10^3/ul (0.0-0.5); EOSINOPHILS % 2.5 % (0.0-7.0); HEMATOCRIT 36.7 % (42.0-52.0); HEMOGLOBIN 12.2 g/dl (14.0-18.0); LYMPHOCYTES # 3.4 10^3/ul (0.8-2.9); LYMPHOCYTES % 31.7 % (15.0-51.0); MEAN CORPUSCULAR HEMOGLOBIN 30.1 pg (29.0-33.0); MEAN CORPUSCULAR HGB CONC 33.2 g/dl (32.0-37.0); MEAN CORPUSCULAR VOLUME 90.6 fl (82.0-101.0); MEAN PLATELET VOLUME 9.1 fl (7.4-10.4); MONOCYTES % 9.4 % (0.0-11.0); NEUTROPHIL # 5.7 10^3/ul (1.6-7.5); NEUTROPHILS % 53.6 % (39.0-77.0); PLATELET COUNT 446 10^3/UL (140-415); RED BLOOD COUNT 4.05 10^6/ul (4.70-6.10); RED CELL DISTRIBUTION WIDTH 14.5 % (11.5-14.5)
[2017-08-28 05:47] LABS: WHITE BLOOD COUNT 10.6 10^3/ul (4.8-10.8)
[2017-08-28 06:16] LABS: AMYLASE 91 U/L (11-123)
[2017-08-28 06:16] LABS: LIPASE 744 U/L (23-300)
[2017-08-28 06:18] LABS: ANION GAP 16 (8-16); BLOOD UREA NITROGEN 10 mg/dl (7-20); CALCIUM 9.2 mg/dl (8.4-10.2); CARBON DIOXIDE 30 mmol/L (21-31); CHLORIDE 102 mmol/L (97-110); CREATININE 0.82 mg/dl (0.61-1.24); GLUCOSE 140 mg/dl (70-220); POTASSIUM 4.3 mmol/L (3.5-5.1); SODIUM 144 mmol/L (135-144)
[2017-08-28] MEDS: DOCUSATE SODIUM 100 MG CAP PO ×2 (08:50→20:45)
[2017-08-28] MEDS: FERROUS GLUCONATE (EC) 325 MG TAB PO ×2 (08:50→20:45)
[2017-08-28] MEDS: METOPROLOL 25 MG TAB PO ×2 (08:51→20:45)
[2017-08-28] MEDS: AMLODIPINE 5 MG TAB PO (08:51)
[2017-08-28] MEDS: IOHEXOL 14.3 MG(I)/ML (ADULT) BTL PO (10:08)
[2017-08-28] MEDS ORDERED: IOHEXOL 300MG/ML 150 ML BTL (11:26)
[2017-08-28] MEDS: SOD CHLORIDE 0.9% 100 ML ×2 (11:26→11:48)
[2017-08-28] MEDS: IOHEXOL 300MG/ML 150 ML BTL (11:48)
[2017-08-28] MEDS: HYDROCODONE/APAP (5/325) TAB PO ×2 (12:29→19:17)
[2017-08-28] MEDS: DEXTROSE 5%-0.45% NACL 1,000 ML IV (15:56)
[2017-08-28] MEDS: ALBUTEROL 0.083% (NEB) 2.5 MG/3 ML AMP HHN (16:53)
[2017-08-28] MEDS: ATORVASTATIN 10 MG TAB PO (20:45)
[2017-08-29] MEDS: DEXTROSE 5%-0.45% NACL 1,000 ML IV ×3 (00:06→16:38)
[2017-08-29] MEDS: PANTOPRAZOLE (EC) 40 MG TAB PO ×2 (06:03→17:53)
[2017-08-29] MEDS: HYDROCODONE/APAP (5/325) TAB PO ×2 (06:05→20:45)
[2017-08-29] MEDS: ALPRAZOLAM 0.25 MG TAB PO ×2 (06:05→16:37)
[2017-08-29 06:11] LABS: ADD MAN DIFF? NO
[2017-08-29 06:14] LABS: BASOPHIL # 0.1 10^3/ul (0.0-0.1); BASOPHILS % 1.2 % (0.0-2.0); EOSINOPHILS # 0.4 10^3/ul (0.0-0.5); EOSINOPHILS % 3.7 % (0.0-7.0); HEMATOCRIT 34.9 % (42.0-52.0); HEMOGLOBIN 11.8 g/dl (14.0-18.0); LYMPHOCYTES # 2.9 10^3/ul (0.8-2.9); LYMPHOCYTES % 30.4 % (15.0-51.0); MEAN CORPUSCULAR HEMOGLOBIN 30.5 pg (29.0-33.0); MEAN CORPUSCULAR HGB CONC 33.8 g/dl (32.0-37.0); MEAN CORPUSCULAR VOLUME 90.2 fl (82.0-101.0); MEAN PLATELET VOLUME 9.1 fl (7.4-10.4); MONOCYTE # 0.9 10^3/ul (0.3-0.9); NEUTROPHIL # 5.2 10^3/ul (1.6-7.5); NEUTROPHILS % 54.1 % (39.0-77.0); PLATELET COUNT 453 10^3/UL (140-415); RED BLOOD COUNT 3.87 10^6/ul (4.70-6.10); RED CELL DISTRIBUTION WIDTH 14.6 % (11.5-14.5)
[2017-08-29 06:14] LABS: WHITE BLOOD COUNT 9.6 10^3/ul (4.8-10.8)
[2017-08-29 06:40] LABS: LIPASE 441 U/L (23-300)
[2017-08-29 06:42] LABS: AMYLASE 48 U/L (11-123)
[2017-08-29 06:42] LABS: ANION GAP 11 (8-16); BLOOD UREA NITROGEN 9 mg/dl (7-20); CALCIUM 8.9 mg/dl (8.4-10.2); CARBON DIOXIDE 33 mmol/L (21-31); CHLORIDE 104 mmol/L (97-110); CREATININE 0.77 mg/dl (0.61-1.24); GLUCOSE 130 mg/dl (70-220); MAGNESIUM 1.8 mg/dl (1.7-2.5); PHOSPHORUS 4.2 mg/dl (2.5-4.9); POTASSIUM 4.1 mmol/L (3.5-5.1); SODIUM 144 mmol/L (135-144)
[2017-08-29] MEDS: FERROUS GLUCONATE (EC) 325 MG TAB PO ×2 (08:26→20:43)
[2017-08-29] MEDS: DOCUSATE SODIUM 100 MG CAP PO ×2 (08:26→20:43)
[2017-08-29] MEDS: METOPROLOL 25 MG TAB PO ×2 (08:27→20:44)
[2017-08-29] MEDS: AMLODIPINE 5 MG TAB PO (08:27)
[2017-08-29] MEDS: ATORVASTATIN 10 MG TAB PO (20:43)
[2017-08-30] MEDS: ALPRAZOLAM 0.25 MG TAB PO ×2 (00:03→08:16)
[2017-08-30] MEDS: DEXTROSE 5%-0.45% NACL 1,000 ML IV ×2 (02:07)
[2017-08-30] MEDS: PANTOPRAZOLE (EC) 40 MG TAB PO (05:32)
[2017-08-30 06:16] LABS: ADD MAN DIFF? NO
[2017-08-30 06:29] LABS: BASOPHIL # 0.1 10^3/ul (0.0-0.1); BASOPHILS % 1.2 % (0.0-2.0); EOSINOPHILS # 0.4 10^3/ul (0.0-0.5); EOSINOPHILS % 4.6 % (0.0-7.0); HEMATOCRIT 38.5 % (42.0-52.0); HEMOGLOBIN 12.7 g/dl (14.0-18.0); LYMPHOCYTES # 2.9 10^3/ul (0.8-2.9); LYMPHOCYTES % 35.7 % (15.0-51.0); MEAN CORPUSCULAR HEMOGLOBIN 29.9 pg (29.0-33.0); MEAN CORPUSCULAR VOLUME 90.6 fl (82.0-101.0); MEAN PLATELET VOLUME 9.3 fl (7.4-10.4); MONOCYTE # 0.7 10^3/ul (0.3-0.9); MONOCYTES % 8.1 % (0.0-11.0); NEUTROPHIL # 3.9 10^3/ul (1.6-7.5); PLATELET COUNT 499 10^3/UL (140-415); RED BLOOD COUNT 4.25 10^6/ul (4.70-6.10); RED CELL DISTRIBUTION WIDTH 14.5 % (11.5-14.5)
[2017-08-30 07:24] LABS: ANION GAP 13 (8-16); BLOOD UREA NITROGEN 6 mg/dl (7-20); CALCIUM 8.8 mg/dl (8.4-10.2); CARBON DIOXIDE 32 mmol/L (21-31); CHLORIDE 105 mmol/L (97-110); CREATININE 0.72 mg/dl (0.61-1.24); GLUCOSE 114 mg/dl (70-220); MAGNESIUM 1.9 mg/dl (1.7-2.5); PHOSPHORUS 3.5 mg/dl (2.5-4.9); POTASSIUM 3.7 mmol/L (3.5-5.1); SODIUM 146 mmol/L (135-144)
[2017-08-30] MEDS: DOCUSATE SODIUM 100 MG CAP PO (08:39)
[2017-08-30] MEDS: FERROUS GLUCONATE (EC) 325 MG TAB PO (08:41)
[2017-08-30] MEDS: METOPROLOL 25 MG TAB PO (08:44)
[2017-08-30] MEDS: AMLODIPINE 5 MG TAB PO (08:46)
[2017-08-30] MEDS: LEVALBUTEROL (NEB) 0.63 MG/3 ML AMP HHN (10:24)
== END 2017-08-30 14:00 | disposition home or self-care (01) | DRG 393 ==
LOC: MS2 19:39
PROC: 0DB98ZX Excision of Duodenum, Via Natural or Artificial Opening Endoscopic, Diagnostic (ICD-10-PCS; principal; 2017-08-20 15:04)
PROC: 0DB68ZX Excision of Stomach, Via Natural or Artificial Opening Endoscopic, Diagnostic (ICD-10-PCS; 2017-08-20 15:04)
DX: K43.9 Ventral hernia without obstruction or gangrene (principal); K85.10 Biliary acute pancreatitis without necrosis or infection; K85.90 Acute pancreatitis without necrosis or infection, unspecified; K92.1 Melena; K31.89 Other diseases of stomach and duodenum; K76.0 Fatty (change of) liver, not elsewhere classified; E78.5 Hyperlipidemia, unspecified; I10 Essential (primary) hypertension; J44.9 Chronic obstructive pulmonary disease, unspecified; D64.9 Anemia, unspecified; E87.6 Hypokalemia; E80.6 Other disorders of bilirubin metabolism; R94.5 Abnormal results of liver function studies; B19.20 Unspecified viral hepatitis C without hepatic coma; Z87.891 Personal history of nicotine dependence
CPT/HCPCS: 74177; 74181; 76700; 80048; 80053; 80061; 80076; 80202; 81001; 82105; 82150; 82270; 83540; 83605; 83690; 83735; 84100; 84132; 85014; 85018; 85025; 85610; 85730; 86038; 86255; 86704; 86706; 86803; 87040; 87086; 87340; 87522; 88305; 88312; 94640; 94664